=== PATIENT | female | born 1960 | race Caucasian/White ===

== ENCOUNTER → 2018-03-19 12:49 | Outpatient (REF) | payer OTHER, SELFPAY | LOC: LAB 12:49 | PROVIDERS: PCP Internal Medicine; Visit Provider Internal Medicine | DX: Z12.39 Encounter for other screening for malignant neoplasm of breast (principal) ==

== ENCOUNTER → 2018-11-10 08:12 | Outpatient (CLI) | payer SELFPAY ==
--- NOTE | 2018-11-10 08:32 | DI.MG.S_ITS ---
BILATERAL DIGITAL DIAGNOSTIC MAMMOGRAM 3D/2D: 11/10/2018 CLINICAL: Left breast pain. Comparison is made to exams dated: 08/14/2015 mammogram, 02/23/2014 mammogram, and 04/24/2010 mammogram - [facility]. The tissue of both breasts is heterogeneously dense. This may lower the sensitivity of mammography. There is a new 2.2 cm x 1.7 cm x 2.3 cm irregular equal density mass with an obscured margin and grouped coarse heterogeneous calcifications in the left breast at 9 o'clock posterior depth. This is seen in additional views. This correlates as palpated and to the area of reported pain. There also are new grouped linear coarse heterogeneous calcifications in the left breast at 7 o'clock anterior depth. Additionally, there are new grouped coarse heterogeneous calcifications in the left breast at 10 o'clock in the retroareolar region. No other significant masses, calcifications, or other findings are seen in either breast. IMPRESSION: INCOMPLETE: NEEDS ADDITIONAL IMAGING EVALUATION The new 2.2 cm x 1.7 cm x 2.3 cm irregular equal density mass in the left breast at 9 o'clock posterior depth is indeterminate. An ultrasound is recommended to further characterize and evaluate the axilla. The new grouped linear coarse heterogeneous calcifications in the left breast at 7 o'clock anterior depth are suspicious of malignancy. A stereotactic biopsy is recommended. The new grouped coarse heterogeneous calcifications in the left breast at 10 o'clock in the retroareolar region are suspicious of malignancy. A stereotactic biopsy is recommended. This exam was interpreted at Station ID: [id number]. NOTE: For mammograms, a report in lay terms will be sent to the patient. Approximately 15% of breast malignancies will not be visualized mammographically. In the management of a palpable breast mass, a negative mammogram must not discourage biopsy of a clinically suspicious lesion. Electronically Signed By: Richard Meléndez M.D. aty/:11/10/2018 10:44:47 ACR BI-RADS Category 0: Incomplete [id number]
--- NOTE | 2018-11-10 09:32 | DI.US.S_ITS ---
ULTRASOUND OF LEFT BREAST: 11/10/2018 CLINICAL: Palpable left breast lump. Comparison is made to exams dated: 11/10/2018 mammogram, 08/14/2015 mammogram, and 02/23/2014 mammogram - [facility]. Color flow and real-time ultrasound of the left breast were performed. Vega scale images of the real-time examination were reviewed. There is 2.1 cm x 1.3 cm x 0.9 cm irregular mass with an indistinct and angular margin in the left breast at 9 o'clock posterior depth 8 cm from the nipple. This irregular mass is hypoechoic with posterior acoustic shadowing. This correlates with mammography findings and area of clinical concern. There are related calcifications. Color flow imaging demonstrates that there is no vascularity present. There also is an enlarged lymph node in the left axillary tail. This enlarged lymph node is hypoechoic with no fatty hilum. Color flow imaging demonstrates that there is an adjacent vascularity. No sonographic abnormalities or masses identified in the left breast middle depth and anterior depth to correlate with suspicious calcifications seen on comparison mammograms from today. IMPRESSION: HIGHLY SUGGESTIVE OF MALIGNANCY The 2.1 cm x 1.3 cm x 0.9 cm irregular mass in the left breast at 9 o'clock posterior depth is highly suggestive of malignancy. An ultrasound guided biopsy is recommended. The enlarged lymph node in the left axillary tail is consistent with an abnormally enlarged lymph node and is highly suggestive of malignancy. An ultrasound guided biopsy is recommended. The patient will also be scheduled for a stereotactic guided biopsy of suspicious calcifications in the left breast. Findings and recommendations were discussed with the patient by Dr. Thomas at time of study completion. This exam was interpreted at Station ID: [id number]. Electronically Signed By: Richard Meléndez M.D. aty/:11/10/2018 10:54:14 letter sent: Biopsy Required Ultrasound BI-RADS: 5 Highly suggestive of malignancy
== END ==
PROVIDERS: PCP Internal Medicine; Visit Provider Nurse Practitioner
DX: R92.8 Other abnormal and inconclusive findings on diagnostic imaging of breast (principal); R92.1 Mammographic calcification found on diagnostic imaging of breast; N63.20 Unspecified lump in the left breast, unspecified quadrant; N64.4 Mastodynia; R59.0 Localized enlarged lymph nodes
CPT/HCPCS: 76642; 77066; G0279

== ENCOUNTER → 2020-07-26 08:04 | Outpatient (CLI) | payer OTHER, SELFPAY ==
[2020-07-26 08:31] LABS: Add Manual Diff / Slide Review NO; Basophils Absolute Auto 0 /uL (0-100); Basophils Percent Auto 0.6 % (0-2); Eosinophils Absolute Auto 0 /uL (0-450); Eosinophils Percent Auto 1.2 % (2-4); Hematocrit 38.3 % (36-46); Hemoglobin 13.2 g/dL (12.0-16.0); Lymphocytes Absolute Auto 900 /uL (1100-4500); Lymphocytes Percent Auto 37.6 % (25-40); Mean Corpuscular HGB Conc 34.4 % (30-36); Mean Corpuscular Hemoglobin 34.4 PG (26-34); Mean Corpuscular Volume 99.8 fL (80-100); Monocytes Absolute Auto 400 /uL (0-900); Monocytes Percent Auto 16.6 % (3-14); Neutrophils Absolute Auto 1000 /uL (1500-7000); Platelet Count 153 X10^3/uL (150-400); Red Blood Cell Count 3.84 X10^6/uL (4.0-5.2); Red Cell Distribution Width 11.8 % (11.6-14.8); White Blood Cell Count 2.3 X10^3/uL (4.5-11.0)
[2020-07-26 08:41] LABS: Cholesterol 220 mg/dL (140-199); HDL Cholesterol 74 mg/dL (40-60); LDL Cholesterol Calculated 128 mg/dL (<100); Triglycerides 88 mg/dL (35-150)
== END ==
PROVIDERS: PCP Internal Medicine; Referring Provider Anesthesiology; Visit Provider Anesthesiology
DX: Z00.00 Encounter for general adult medical examination without abnormal findings (principal)
CPT/HCPCS: 36415; 80061; 85025

== ENCOUNTER → 2020-10-18 08:21 | Outpatient (CLI) | payer OTHER, SELFPAY ==
[2020-10-18 09:52] LABS: Hemoglobin 13.1 g/dL (12.0-16.0); Mean Corpuscular Hemoglobin 34.5 PG (26-34); Mean Corpuscular Volume 100.5 fL (80-100); Red Blood Cell Count 3.79 X10^6/uL (4.0-5.2); White Blood Cell Count 2.2 X10^3/uL (4.5-11.0)
[2020-10-18 09:53] LABS: Add Manual Diff / Slide Review NO; Basophils Absolute Auto 0 /uL (0-100); Basophils Percent Auto 0.7 % (0-2); Eosinophils Absolute Auto 0 /uL (0-450); Eosinophils Percent Auto 1.6 % (2-4); Lymphocytes Absolute Auto 700 /uL (1100-4500); Lymphocytes Percent Auto 33.3 % (25-40); Mean Corpuscular HGB Conc 34.4 % (30-36); Monocytes Absolute Auto 400 /uL (0-900); Monocytes Percent Auto 15.9 % (3-14); Neutrophils Absolute Auto 1100 /uL (1500-7000); Neutrophils Percent Auto 48.5 % (50-75); Platelet Count 152 X10^3/uL (150-400); Red Cell Distribution Width 12.1 % (11.6-14.8)
[2020-10-18 10:12] LABS: Cholesterol 199 mg/dL (140-199); HDL Cholesterol 70 mg/dL (40-60); LDL Cholesterol Calculated 111 mg/dL (<100); Triglycerides 90 mg/dL (35-150)
== END ==
PROVIDERS: PCP Internal Medicine; Referring Provider Anesthesiology; Visit Provider Anesthesiology
DX: Z00.00 Encounter for general adult medical examination without abnormal findings (principal)
CPT/HCPCS: 36415; 80061; 85025

== ENCOUNTER → 2021-08-07 08:12 | Outpatient (CLI) | payer OTHER, SELFPAY ==
[2021-08-07 08:34] LABS: Add Manual Diff / Slide Review NO; Basophils Absolute Auto 0 /uL (0-100); Basophils Percent Auto 0.4 % (0-2); Eosinophils Absolute Auto 0 /uL (0-450); Eosinophils Percent Auto 1.2 % (2-4); Hematocrit 38.2 % (36-46); Hemoglobin 13.3 g/dL (12.0-16.0); Lymphocytes Absolute Auto 1000 /uL (1100-4500); Lymphocytes Percent Auto 25.6 % (25-40); Mean Corpuscular HGB Conc 34.9 % (30-36); Mean Corpuscular Hemoglobin 34.2 PG (26-34); Monocytes Absolute Auto 600 /uL (0-900); Monocytes Percent Auto 14.5 % (3-14); Neutrophils Absolute Auto 2300 /uL (1500-7000); Neutrophils Percent Auto 58.3 % (50-75); Platelet Count 168 X10^3/uL (150-400)
== END ==
PROVIDERS: PCP Internal Medicine; Referring Provider Anesthesiology; Visit Provider Anesthesiology
DX: R79.9 Abnormal finding of blood chemistry, unspecified (principal)
CPT/HCPCS: 36415; 85025

== ENCOUNTER → 2022-06-30 10:28 | Outpatient (CLI) | payer OTHER, SELFPAY ==
--- NOTE | 2022-06-30 10:29 | DI.RAD.S_ITS ---
PROCEDURE: XR HIP W PEL IF DONE WILLIAM MIN 4V INDICATIONS: hip pain TECHNIQUE: AP pelvis with lateral view(s) of the bilateral hip(s). COMPARISON: None. FINDINGS: Bones: No fractures or dislocations. Pelvic ring appears intact. No suspicious bony lesions. There is mild bilateral joint space narrowing and moderate bilateral hip periarticular osteophyte formation. Soft tissues: The visualized bowel gas pattern is normal. No suspicious soft tissue calcifications. IMPRESSION: Bilateral hip osteoarthritis. No acute fracture. No osseous lesion. If symptoms and/or clinical suspicion for pathology persist, further assessment with repeat, or advanced imaging (e.g., CT, MRI, or bone scan) may be helpful for further assessment. Dictated by: Hannah Miller M.D. on 06/30/2022 at 13:06 Transcribed by: ALEJANDRA on 06/30/2022 at 13:07 Approved by: Hannah Miller M.D. on 06/30/2022 at 15:53
== END ==
PROVIDERS: PCP Internal Medicine; Referring Provider Internal Medicine; Visit Provider Internal Medicine
DX: M25.559 Pain in unspecified hip (principal); M16.0 Bilateral primary osteoarthritis of hip
CPT/HCPCS: 73522

== ENCOUNTER → 2022-08-06 08:10 | Outpatient (CLI) | payer OTHER, SELFPAY ==
[2022-08-06 10:05] LABS: Alanine Aminotransferase 26 IU/L (<35); Albumin Globulin Ratio 1.5 (1.0-2.8); Alkaline Phosphatase 45 U/L (38-126); Aspartate Aminotransferase 32 IU/L (14-36); Bilirubin Total 0.4 mg/dL (0.2-1.3); Blood Urea Nitrogen 18 mg/dL (7-17); Calcium 8.9 mg/dL (8.4-10.2); Carbon Dioxide 31 mmol/L (22-32); Chloride 103 mmol/L (98-107); Cholesterol 227 mg/dL (140-199); Estimated Glomerular Filt Rate > 60 mL/min (>60); Globulin 2.6 g/dL (1.7-4.1); Glucose 93 mg/dL (80-110); HDL Cholesterol 66 mg/dL (40-60); HEMOLYSIS < 15 (0-50); LDL Cholesterol Calculated 140 mg/dL (<100); Potassium 4.2 mmol/L (3.4-5.1); Sodium 138 mmol/L (137-145); Total Protein 6.6 g/dL (6.3-8.2); Triglycerides 107 mg/dL (35-150)
[2022-08-06 10:41] LABS: TSH w/ Reflex to FT4 1.63 uIU/mL (0.47-4.68)
== END ==
PROVIDERS: PCP Internal Medicine; Referring Provider Internal Medicine; Visit Provider Internal Medicine
DX: G62.9 Polyneuropathy, unspecified (principal); Z13.1 Encounter for screening for diabetes mellitus; R94.5 Abnormal results of liver function studies; Z13.220 Encounter for screening for lipoid disorders; Z13.6 Encounter for screening for cardiovascular disorders
CPT/HCPCS: 36415; 80053; 80061; 84443

== ENCOUNTER → 2023-10-08 08:33 | Outpatient (CLI) | payer OTHER, SELFPAY ==
[2023-10-08 09:02] LABS: Add Manual Diff / Slide Review NO; Basophils Absolute Auto 0 /uL (0-100); Basophils Percent Auto 0.6 % (0-2); Eosinophils Absolute Auto 0 /uL (0-450); Eosinophils Percent Auto 1.1 % (2-4); Hematocrit 40.2 % (36-46); Lymphocytes Absolute Auto 1000 /uL (1100-4500); Lymphocytes Percent Auto 31.5 % (25-40); Mean Corpuscular HGB Conc 34.9 % (30-36); Mean Corpuscular Hemoglobin 34.1 PG (26-34); Mean Corpuscular Volume 97.8 fL (80-100); Monocytes Absolute Auto 400 /uL (0-900); Monocytes Percent Auto 14.4 % (3-14); Neutrophils Absolute Auto 1600 /uL (1500-7000); Neutrophils Percent Auto 52.4 % (50-75); Platelet Count 186 X10^3/uL (150-400); Red Blood Cell Count 4.11 X10^6/uL (4.0-5.2); White Blood Cell Count 3.1 X10^3/uL (4.5-11.0)
[2023-10-08 09:26] LABS: Erythrocyte Sedimentation Rate 14 MM/HR (0-20)
[2023-10-08 09:27] LABS: Alanine Aminotransferase 38 IU/L (<35); Albumin 4.3 g/dL (3.5-5.0); Albumin Globulin Ratio 1.4 (1.0-2.8); Alkaline Phosphatase 50 U/L (38-126); Aspartate Aminotransferase 40 IU/L (14-36); BUN Creatinine Ratio 25.3 (6-22); Bilirubin Total 0.7 mg/dL (0.2-1.3); Blood Urea Nitrogen 22 mg/dL (7-17); C-Reactive Protein Quant < 0.5 mg/dL (<1.0); Calcium 9.2 mg/dL (8.4-10.2); Carbon Dioxide 30 mmol/L (22-32); Chloride 106 mmol/L (98-107); Cholesterol 256 mg/dL (140-199); Estimated Glomerular Filt Rate > 60 mL/min (>60); Glucose 109 mg/dL (80-110); HDL Cholesterol 78 mg/dL (40-60); HEMOLYSIS < 15 (0-50); LDL Cholesterol Calculated 162 mg/dL (<100); Potassium 5.3 mmol/L (3.4-5.1); Sodium 139 mmol/L (137-145); Total Protein 7.3 g/dL (6.3-8.2); Triglycerides 80 mg/dL (35-150)
[2023-10-08 09:55] LABS: TSH w/ Reflex to FT4 1.65 uIU/mL (0.47-4.68)
== END ==
PROVIDERS: PCP Internal Medicine; Referring Provider Anesthesiology; Visit Provider Internal Medicine
DX: Z00.00 Encounter for general adult medical examination without abnormal findings (principal); Z13.6 Encounter for screening for cardiovascular disorders; Z13.1 Encounter for screening for diabetes mellitus; G62.9 Polyneuropathy, unspecified; D64.9 Anemia, unspecified; Z85.3 Personal history of malignant neoplasm of breast
CPT/HCPCS: 36415; 80053; 80061; 82652; 84443; 85025; 85651; 86140

== ENCOUNTER 2024-03-15 07:21 | Day surgery (SDC) | payer OTHER, SELFPAY ==
--- NOTE | 2024-03-15 | PATH_ITS ---
[facility] Accession Number: [id number] No. of containers..01 Tissue . 01 Material submitted: . colon - SIGMOID COLON POLYP . 01 Diagnosis: SIGMOID COLON POLYP: Tubular adenoma. [facility] 03/17/2024 1123 Local . 01 Electronically signed: . Benson Hemphill MD, PhD, Pathologist NPI- [id number] . 01 Gross description: . Received in formalin with two patient identifiers and sigmoid colon polyp, is a single almeida soft tissue fragment, 0.3 cm in greatest dimension, submitted in A1. ([id number]) /MRV 03/16/2024 1524 Local . 01 Pathologist provided ICD-10: D12.5 . 01 CPT . 458649 Specimen Comment: A courtesy copy of this report has been sent to [phone] Performed at: [address] [facility] [id number] MD Justin Mitchell MD Phone: [phone]
[2024-03-15 07:48] VITALS: BP 115/89; PULSE 68; RESP 16; TEMP 36.4; O2SAT 98
--- NOTE | 2024-03-15 08:05 | PM.HP.1 ---
History of Present Illness History of Present Illness Date Patient Seen: 03/15/24 Time Patient Seen: 08:06 Chief complaint: Screening Colonoscopy Narrative: 63-year-old woman here for screening colonoscopy. Last colonoscopy 5-10 years ago. No family history of colon cancer. No abdominal concerns today. [facility] Medical History COVID-19 Personal history of breast cancer Peripheral neuropathy Invasive ductal carcinoma of breast, stage 2 Abnormal liver function tests (07/24/17) Surgical History S/P bilateral mastectomy Status post delivery (09/16/05) Family History Father Age: 87 Diabetes mellitus Mother Age: 87 High cholesterol Social History Smoking Status: Never smoker alcohol intake: current Meds Home Medications and Allergies Home Medications Medication Instructions Recorded Confirmed Type cholecalciferol (vitamin D3) 100 4,000 unit PO DAILY 11/04/18 10/08/23 History mcg (4,000 unit) capsule exemestane 25 mg tablet 25 mg PO DAILY 09/24/23 03/15/24 History gabapentin 300 mg capsule 600 mg (2 x 300 mg) PO BID #360 09/24/23 03/15/24 Rx caps trazodone 50 mg tablet 50 - 100 mg (1 - 2 x 50 mg) PO 11/23/23 03/15/24 Rx BEDTIME #180 tabs Allergies Allergy/AdvReac Type Severity Reaction Status Date / Time No Known Drug Allergies Allergy Verified 03/15/24 07:38 Exam Vital Signs (past 8 hours): - 03/15/24 07:48 Temperature 97.5 F L Pulse Rate 68 Respiratory Rate 16 Blood Pressure 115/89 Pulse Oximetry 98 Oxygen Delivery Method Room Air Oxygen Delivery Method Room Air Narrative Exam Narrative: General adult woman alert oriented no acute distress Chest nonlabored respiration Extremities warm well perfused Assessment & Plan Assessment & Plan narrative: The patient requires colorectal screening and colonoscopy is recommended. Technical details were discussed. Risks, benefits, alternatives explained. Risks including but not limited to myocardial infarction, aspiration, bleeding, pain, missed lesion, incomplete examination, need for further radiographic studies, intestinal injury, and need for major abdominal surgery were discussed. All questions were answered to their satisfaction, and they are in agreement with this plan. Time-Based Coding :: [TOTAL MINUTES] spent with patient and on the chart (including review of chart, obtaining history, exam, reviewing outside data, placing orders, documenting exam and treatment plan, and counseling patient) on [DATE].
[2024-03-15 08:31] VITALS: BP 98/71; PULSE 68; RESP 16; TEMP 36.2; O2SAT 95
[2024-03-15 08:34] VITALS: BP 97/65; PULSE 71; RESP 16; O2SAT 95
[2024-03-15 08:36] VITALS: BP 91/63; PULSE 72; RESP 16; O2SAT 97
--- NOTE | 2024-03-15 08:37 | P.OP.COLON_ITS ---
Operative Date/Time/Diagnoses Date of procedure: 03/15/24 Time of procedure: 08:37 Pre-op diagnosis: Colorectal screening Post-op diagnosis: other (Colonic polyp) Procedure & Clinicians Study performed: Screening colonoscopy and polypectomy Same procedure as scheduled: Yes Indications: Screening Surgeon: Nael Mike Procedure Notes Procedure in detail: The history and physical was performed/updated and the patient is ASA class is 2. The procedure was discussed in detail with the patient. Potential risks complications including infection, bleeding, missed diagnosis, perforation, need for surgery, and were explained. Their questions were answered and informed consent was obtained. Patient was brought to the procedure room and placed standard monitoring equipment. The patient's vital signs were monitored continuously throughout the entire procedure. Prior to starting time-out was performed. The patient was placed in the left lateral recumbent position. Procedural sedation was administered by anesthesia. Examination began with a thorough inspection of the perianal area there was no evidence of fissures, fistulae, external hemorrhoids or cutaneous malignancy. The colonoscopy scope was then placed into the anal canal and was advanced to the cecum, which was identified by the ileocecal valve, the appendiceal orifice and the confluence of the taenia. The scope was then slowly withdrawn examining colon thoroughly in all directions, irrigating it of any residual stool. The scope was retroflexed within the rectum The patient tolerated the procedure well. They will be discharged once criteria are met. The prep was of good/excellent quality. The withdrawl time was 6 minutes. FINDINGS * Sessile 3 mm polyp in the sigmoid colon removed with biopsy forceps Specimen(s): other (Sigmoid colon polyp) Impression: Colonic polyp x1 Post-procedure Plan for aftercare: Follow up dependent on pathology findings likely 5 years. Disposition: same day surgery
[2024-03-15 08:41] VITALS: BP 113/70; PULSE 60; RESP 15; O2SAT 98
[2024-03-15 08:42] VITALS: BP 117/69; PULSE 72; RESP 16; O2SAT 98
== END 2024-03-15 09:15 | disposition home or self-care (01) ==
PROVIDERS: PCP Internal Medicine; Referring Provider Surgery; Visit Provider Surgery
PROC: 0DJD8ZZ Inspection of Lower Intestinal Tract, Via Natural or Artificial Opening Endoscopic (ICD-10-PCS; CPT 45378; principal; 2024-03-15 08:15)
DX: Z12.11 Encounter for screening for malignant neoplasm of colon (principal); D12.5 Benign neoplasm of sigmoid colon
CPT/HCPCS: 45380; J2704

== ENCOUNTER → 2024-10-10 11:34 | Outpatient (CLI) | payer OTHER, SELFPAY ==
[2024-10-10 12:12] LABS: Add Manual Diff / Slide Review NO; Basophils Absolute Auto 0 /uL (0-100); Basophils Percent Auto 0.8 % (0-2); Eosinophils Absolute Auto 0 /uL (0-450); Eosinophils Percent Auto 0.7 % (2-4); Hematocrit 41.2 % (36-46); Hemoglobin 14.1 g/dL (12.0-16.0); Lymphocytes Absolute Auto 900 /uL (1100-4500); Lymphocytes Percent Auto 28.5 % (25-40); Mean Corpuscular HGB Conc 34.2 % (30-36); Mean Corpuscular Hemoglobin 33.3 PG (26-34); Mean Corpuscular Volume 97.4 fL (80-100); Monocytes Absolute Auto 500 /uL (0-900); Monocytes Percent Auto 15.1 % (3-14); Neutrophils Absolute Auto 1700 /uL (1500-7000); Neutrophils Percent Auto 54.9 % (50-75); Platelet Count 174 X10^3/uL (150-400); Red Blood Cell Count 4.23 X10^6/uL (4.0-5.2); Red Cell Distribution Width 12.3 % (11.6-14.8); White Blood Cell Count 3.1 X10^3/uL (4.5-11.0)
[2024-10-10 12:42] LABS: Alanine Aminotransferase 31 IU/L (<35); Albumin 4.6 g/dL (3.5-5.0); Albumin Globulin Ratio 1.8 (1.0-2.8); Alkaline Phosphatase 50 U/L (38-126); Aspartate Aminotransferase 37 IU/L (14-36); BUN Creatinine Ratio 29.3 (6-22); Bilirubin Total 0.6 mg/dL (0.2-1.3); Blood Urea Nitrogen 22 mg/dL (7-17); Calcium 9.9 mg/dL (8.4-10.2); Carbon Dioxide 26 mmol/L (22-32); Chloride 103 mmol/L (98-107); Estimated Glomerular Filt Rate > 60 mL/min (>60); Globulin 2.5 g/dL (1.7-4.1); Glucose 95 mg/dL (70-99); HEMOLYSIS < 15 (0-50); Potassium 4.5 mmol/L (3.4-5.1); Sodium 137 mmol/L (137-145); Total Protein 7.1 g/dL (6.3-8.2)
[2024-10-10 12:53] LABS: Free T4, Direct Thyroxine 1.63 ng/dL (0.78-2.19)
[2024-10-10 13:06] LABS: Thyroid Stimulating Hormone 1.13 uIU/mL (0.47-4.68)
== END ==
PROVIDERS: PCP Internal Medicine; Referring Provider Internal Medicine; Visit Provider Internal Medicine
DX: R94.5 Abnormal results of liver function studies (principal); R63.4 Abnormal weight loss
CPT/HCPCS: 36415; 80053; 84439; 84443; 84481; 85025